=== PATIENT | male | born 1995 | race Caucasian/White ===

== ENCOUNTER 2016-07-05 22:06 | Emergency (ER) | payer OTHER ==
[~2016-07-05] VITALS: Ht 180.3 cm; Wt 83.6 kg
[~2016-07-05 22:06] MED LIST: ACET-1256 PO; MULT-506 PO
[2016-07-05 22:10] VITALS: TEMP 37.3; Ht 180.3 cm; Wt 83.6 kg
--- NOTE | 2016-07-05 22:51 | DIAGNOSTIC IMAGING REPORT ---
CHEST 2 VIEWS ROUTINE CLINICAL HISTORY: cough, fever COMPARISON STUDY: No previous studies for comparison. FINDINGS: The cardiac and mediastinal contours are normal. There is no evidence of focal pulmonary consolidation. There is no evidence of failure. No pleural effusions are visualized.[ IMPRESSION: No active disease in the chest. Electronically signed by: Ladnon Valentino M.D. 07/05/2016 10:50 PM Dictated Date/Time: 07/05/2016 10:49 PM
--- NOTE | 2016-07-05 22:56 | EMERGENCY ROOM VISIT NOTE ---
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 The patient states that he has been coughing since this morning. He also admits that he has had some right ear pressure and decreased hearing for the past 2 days. Patient states that he has felt warm but did not take his temperature. The patient denies any chest tightness or shortness of breath. The patient denies any nausea or vomiting. The patient is concerned because he is traveling home tomorrow which is over 19 hour flight. REVIEW OF SYSTEMS: 6 system review was performed and was negative unless stated otherwise in history of present illness. PMH: The patient is healthy; there is no significant medical or surgical history. SOCIAL HISTORY: Patient lives with his roommate. The patient is a [employer] student. The patient admits to tobacco use but denies any alcohol use. PHYSICAL EXAM: Vital Signs were reviewed: Temperature 37.3, blood pressure 143/ 60, pulse 118, respiratory rate 18 Reviewed Nurse's notes and agree. Oxygen saturation is 97 % on room air which is normal . GENERAL: 20-year-old male appears in no acute distress. MENTAL STATUS: Alert, oriented, coherent. EARS: Canals clear. TMs good light reflex, no erythema or fluid level noted. NOSE: Nasal mucosa with moderate erythema engorgement. PHARYNX: Moderate erythema, no edema noted. No exudate noted. Airway is adequate. NECK: Supple, non-tender. No lymphadenopathy noted. LUNGS: Clear to auscultation without wheezes rales or rhonchi. CARDIAC: Regular rate and rhythm without murmur. SKIN: No rashes noted. EMERGENCY DEPARTMENT COURSE: The patient was evaluated. The patient's medication list was reviewed. Rapid strep was negative. Culture is pending. Chest x-ray was ordered and interpreted by myself and the radiologist. DIAGNOSTICSCHEST 2 VIEWS ROUTINE CLINICAL HISTORY: cough, fever COMPARISON STUDY: No previous studies for comparison. FINDINGS: The cardiac and mediastinal contours are normal. There is no evidence of focal pulmonary consolidation. There is no evidence of failure. No pleural effusions are visualized.[ IMPRESSION: No active disease in the chest. Electronically signed by: Landon Valentino M.D. 07/05/2016 10:50 PM Dictated Date/Time: 07/05/2016 10:49 PM The patient was informed of the findings. The patient was discharged home in stable condition. DIAGNOSIS: Viral URI DISCHARGE INSTRUCTIONS AND TREATMENT: Recommend [id number] symptomatic treatment, push fluids, Tylenol and/or ibuprofen as needed for fever and body aches. Recommend wearing a mask tomorrow while you are traveling . If symptoms persist, follow-up with family doctor at home. Current/Historical Medications Scheduled Acetaminophen (Tylenol), 500 MG PO DIRECTED Multivitamin (Multivitamin), 1 TAB PO DAILY Allergies Coded Allergies: No Known Allergies (Unverified , 11/30/15) Vital Signs Date Time Temp Pulse Resp B/P Pulse Ox O2 Delivery O2 Flow Rate FiO2 07/05/16 22:10 37.3 118 18 143/60 97 Room Air Departure Information Referrals No Doctor, Assigned (PCP) Patient Instructions Former[facility], 1928–1983
[2016-07-05] MEDS ORDERED: PHEN-905 PO (23:02)
[2016-07-05 23:03] VITALS: BP 112/67; PULSE 79; O2SAT 97
== END 2016-07-05 23:04 | disposition home or self-care (01) ==
LOC: C.EDB 22:06
DX: J06.9 Acute upper respiratory infection, unspecified (principal); F17.200 Nicotine dependence, unspecified, uncomplicated

== ENCOUNTER 2017-10-26 10:18 | Emergency (ER) | payer OTHER ==
[~2017-10-26] VITALS: Ht 180.3 cm; Wt 95.0 kg
[~2017-10-26 10:18] MED LIST changes: -ACET-1256 PO; +ASPEC325 PO; +CLC6 PO; -MULT-506 PO; +VLTG EXT
[2017-10-26 10:27] VITALS: TEMP 36.8; Ht 180.3 cm; Wt 95.0 kg
--- NOTE | 2017-10-26 10:59 | DIAGNOSTIC IMAGING REPORT ---
L HAND MIN 3 VIEWS ROUTINE HISTORY: 22 years-old Male pain in wrist and finger acute left hand and wrist pain COMPARISON: None available TECHNIQUE: 3 views of the left hand FINDINGS: No acute fracture, dislocation or significant degenerative changes. No opaque foreign body. IMPRESSION: No acute fracture. The above report was generated using voice recognition software. It may contain grammatical, syntax or spelling errors. Electronically signed by: Vinny Michaels M.D. 10/26/2017 10:57 AM Dictated Date/Time: 10/26/2017 10:56 AM
--- NOTE | 2017-10-26 11:10 | EMERGENCY ROOM VISIT NOTE ---
ED Visit Note First contact with patient: 10:30 CHIEF COMPLAINT: Left hand/wrist injury 2 weeks ago Patient is a [id number] 22-year-old male who C department for evaluation of left hand pain. He injured the wrist about 2 weeks ago when he was hit with a soccer ball awkwardly, which caused a hyperextension injury of his wrist. He has tried Voltaren gel and wrapping the wrist. Today, he notes pain in the palmar aspect of the hand, over the carpal region of the distal ulna. He also some discomfort in the pinky finger. There is no new injury. He denies any numbness or weakness. He rates his pain a 5/10. REVIEW OF SYSTEMS: Review of systems as per HPI. All other systems reviewed were negative. At least 6 systems reviewed. PMH: Electronic medical records are reviewed and summarized as above/below. See Problem List. SOCIAL HISTORY: College student. Non-smoker. PHYSICAL EXAM: Vital Signs: Reviewed Nurse's notes. MENTAL STATUS: Well- appearing 22-year-old male who is awake and alert and in no acute distress. MUSCULOSKELETAL: Examination of the left WRIST does not reveal any obvious deformity. No ecchymosis or soft tissue swelling. He is tender over the palmar aspect of the wrist, over the carpal and proximal fifth metacarpal region. He has pain with flexion and extension. Pronation and supination are full. Left upper extremity is neurovascularly intact. EMERGENCY DEPARTMENT COURSE: X-rays of the left wrist were obtained and negative for acute fracture or bony abnormality. The patient was fitted with a wrist lacer. Conservative care measures were discussed. He was encouraged to follow-up with nightly or orthopedic surgery if his symptoms are not improving. Differential diagnosis included fracture, sprain, strain, contusion, dislocation, among others. L HAND MIN 3 VIEWS ROUTINE HISTORY: 22 years-old Male pain in wrist and finger acute left hand and wrist pain COMPARISON: None available TECHNIQUE: 3 views of the left hand FINDINGS: No acute fracture, dislocation or significant degenerative changes. No opaque foreign body. IMPRESSION: No acute fracture. Current/Historical Medications Scheduled Colchicine (Colcrys), 0.6 MG PO BID Scheduled PRN Aspirin (Aspirin), 1 TAB PO TID PRN for Pain Diclofenac Sod (Voltaren), 1 APPLN EXT TID PRN for pain Allergies Coded Allergies: No Known Allergies (Unverified , 10/26/17) Vital Signs Date Time Temp Pulse Resp B/P (MAP) Pulse Ox O2 Delivery O2 Flow Rate FiO2 10/26/17 11:24 69 18 147/81 97 10/26/17 10:27 36.8 76 18 137/68 98 Room Air Departure Information Impression Primary Impression: Left wrist sprain Referrals No Doctor, Assigned (PCP) Patient Instructions [facility] Additional Instructions Ibuprofen(Motrin, Advil) may be used for fever or pain. Use 600mg every six hours as needed. Take with food. Avoid using more than 2400mg in a 24 hour period. Do not use 2400mg per day for more than three consecutive days without physician direction. Prolonged inappropriate use can lead to stomach upset or ulcers. This medication can be taken if you need to drive, work, or perform activities which may be dangerous when taking narcotic pain medication. (AND/OR) Acetaminophen(Tylenol) may be used for fever or pain. Use 1000mg every six hours as needed. Avoid using more than 3000mg in a 24 hour period. This medication can be taken if you need to drive, work, or perform activities which may be dangerous when taking narcotic pain medication. Ice compresses for 20 minutes at a time four times daily for 2-3 days. Use the wrist lacer as instructed. Rest and elevate your injury. Continue current medications. Return to the ER immediately for any numbness, tingling, severe pain, extreme swelling in the extremity or as needed. Followup with [facility] if your symptoms are not improving in 5 -7 days.
[2017-10-26 11:24] VITALS: BP 147/81; PULSE 69; O2SAT 97
== END 2017-10-26 11:27 | disposition home or self-care (01) ==
LOC: C.EDB 10:20 → C.EDD 11:27
DX: S63.502A Unspecified sprain of left wrist, initial encounter (principal); W21.02XA Struck by soccer ball, initial encounter